=== PATIENT | male | born 1995 | race African-American/Black ===

== ENCOUNTER 2018-10-22 16:31 | Emergency (ER) | payer BC, OTHER ==
[2018-10-22] MEDS ORDERED: Lidocaine Viscous Sol 2% 15 ml UD Cup ONE (17:07)
[2018-10-22] MEDS ORDERED: Morphine 2 MG/ML SYRINGE ONE (17:07)
== END 2018-10-22 18:02 | disposition home or self-care (01) ==
LOC: ERS 16:31
DX: K08.89 Other specified disorders of teeth and supporting structures (principal)
CPT/HCPCS: 96372; J2270